=== PATIENT | female | born 1940 | race Caucasian/White ===

== ENCOUNTER → 2022-02-25 | Outpatient (CLI) | payer MEDICARE, OTHER | LOC: CT 07:36 | PROVIDERS: ATTEND Urology | DX: N20.0 Calculus of kidney (principal) | CPT/HCPCS: 74176 ==

== ENCOUNTER → 2022-04-22 | Day surgery (SDC) | payer MEDICARE, OTHER ==
[2022-04-19 14:09] LABS: BASOPHILS % 0.6 % (0.0-1.0); EOSINOPHILS % 0.6 % (0.0-6.0); HEMOGLOBIN 13.8 g/dL (12.0-16.0); LYMPHOCYTES # (AUTO) 2.6 (1.0-3.2); LYMPHOCYTES % 38.4 % (18.0-39.1); MEAN CORPUSCULAR HEMOGLOBIN 28.5 pg (28-32); MEAN CORPUSCULAR HGB CONC 31.4 g/dL (31-35); MEAN CORPUSCULAR VOLUME 90.9 fL (81-99); MONOCYTES # (AUTO) 0.6 (0.2-0.8); MONOCYTES % 8.7 % (4.4-11.3); NEUTROPHILS # (AUTO) 3.5 (2.1-6.9); NEUTROPHILS % 51.6 % (38.7-80.0); PLATELET COUNT 197 x10e3/uL (140-360); RED BLOOD COUNT 4.84 x10e6/uL (3.6-5.1); RED CELL DISTRIBUTION WIDTH 13.3 % (11.7-14.4)
[2022-04-19 14:35] LABS: ANION GAP 17.3 mmol/L (8-16); CALCIUM 9.8 mg/dL (8.4-10.2); CREATININE, SERUM 0.74 mg/dL (0.57-1.11); POTASSIUM 3.3 mmol/L (3.5-5.1)
[~2022-04-22] MED LIST: ALIGN4 MG; AMLODIPINE BESYL5 MG PO; ASPIRIN81 MG PO; CALCIUM; CEFTRIAXONE 1 GM VIAL ONE; COQ-10100 MG; DIOVAN160 MG PO; EPHEDRINE SULFATE INJ 50 MG/ML VIAL ONE; EYE DROPS15 ML; FENTANYL CITRATE/PF 100MCG/2 ML INJ ONE; FISH OIL 1,0001 EAC7; FLOMAX0.4 MG PO; HYDROCHLOROTH12.5 MG PO; IOPAMIDOL 300MG/ML 50ML INFUS..BTL IV ONE; LIDOCAINE HCL 2% LOCAL INJ 5 ML SDV VIAL INJ ONE; LIPITOR20 MG PO; ONDANSETRON HCL INJ 2MG/ML 2ML 2 MG/ML VIAL ONE; PLAVIX75 MG PO; POVIDONE IODINE 0.05% 0.05 % ML PO ONE; PROPOFOL IV EMULSION 10 MG/ML 20 ML VIAL ONE; SENNA8.6 MG; SEVOFLURANE INHAL SOLN 250 ML PEN BTL ONE; STOOL SOFTENER50 MG; TOPROL XL50 MG PO; TYLENOL ARTHRITIS; VITAMIN D31 ML; ZINC
[2022-04-22 12:32] VITALS: BP 117/66
== END | disposition home or self-care (01) ==
LOC: OR 08:02
PROVIDERS: ATTEND Urology
DX: N20.0 Calculus of kidney (principal); N39.0 Urinary tract infection, site not specified; N81.2 Incomplete uterovaginal prolapse; N95.2 Postmenopausal atrophic vaginitis; R80.9 Proteinuria, unspecified; N31.2 Flaccid neuropathic bladder, not elsewhere classified; N31.9 Neuromuscular dysfunction of bladder, unspecified; R35.1 Nocturia; N39.46 Mixed incontinence; I25.10 Atherosclerotic heart disease of native coronary artery without angina pectoris; I10 Essential (primary) hypertension; I25.2 Old myocardial infarction; I69.341 Monoplegia of lower limb following cerebral infarction affecting right dominant side; E78.5 Hyperlipidemia, unspecified; K44.9 Diaphragmatic hernia without obstruction or gangrene; E04.1 Nontoxic single thyroid nodule; I65.29 Occlusion and stenosis of unspecified carotid artery; Z88.1 Allergy status to other antibiotic agents; Z91.018 Allergy to other foods; Z01.810 Encounter for preprocedural cardiovascular examination; Z01.812 Encounter for preprocedural laboratory examination; Z01.818 Encounter for other preprocedural examination; Z79.02 Long term (current) use of antithrombotics/antiplatelets; Z79.82 Long term (current) use of aspirin; Z79.899 Other long term (current) drug therapy; Z68.31 Body mass index [BMI] 31.0-31.9, adult; Z98.890 Other specified postprocedural states; Z85.42 Personal history of malignant neoplasm of other parts of uterus; Z85.3 Personal history of malignant neoplasm of breast
CPT/HCPCS: 36415; 50590; 71046; 74018; 80048; 83970; 84550; 85025; 87086; 93005; C1758; J0696; J2001; J2405; J2704; J3010; Q9967

== ENCOUNTER → 2022-05-20 | Outpatient (CLI) | payer MEDICARE, OTHER ==
[~2022-05-20] MED LIST changes: -CEFTRIAXONE 1 GM VIAL ONE; -EPHEDRINE SULFATE INJ 50 MG/ML VIAL ONE; -FENTANYL CITRATE/PF 100MCG/2 ML INJ ONE; -IOPAMIDOL 300MG/ML 50ML INFUS..BTL IV ONE; -LIDOCAINE HCL 2% LOCAL INJ 5 ML SDV VIAL INJ ONE; -ONDANSETRON HCL INJ 2MG/ML 2ML 2 MG/ML VIAL ONE; -POVIDONE IODINE 0.05% 0.05 % ML PO ONE; -PROPOFOL IV EMULSION 10 MG/ML 20 ML VIAL ONE; -SEVOFLURANE INHAL SOLN 250 ML PEN BTL ONE
== END ==
LOC: RAD 11:34
PROVIDERS: ATTEND Urology
DX: N20.0 Calculus of kidney (principal)
CPT/HCPCS: 74018

== ENCOUNTER → 2023-04-13 | Outpatient (REF) | payer MEDICARE, OTHER | LOC: RAD 10:23 | PROVIDERS: ATTEND Urology | DX: N20.0 Calculus of kidney (principal) | CPT/HCPCS: 74018 ==

== ENCOUNTER → 2024-10-01 | Outpatient (REF) | payer MEDICARE, OTHER | LOC: RAD 08:00 | PROVIDERS: ATTEND Urology | DX: N20.0 Calculus of kidney (principal) | CPT/HCPCS: 74018 ==